=== PATIENT | male | born 2005 | race Two or more races ===

== ENCOUNTER 2025-01-14 12:07 | Emergency (ER) | payer OTHER, SELFPAY ==
[2025-01-14 12:09] VITALS: BP 121/79
[2025-01-14 12:46] LABS: COVID-19 Antigen Negative (Negative)
--- NOTE | 2025-01-14 13:03 | ED.GENMED ---
History of Present Illness
General
Chief Complaint: Cold/Flu/URI Symptoms
Source: patient
Exam Limitations: none
Time Seen by Provider: 01/14/25 12:56
Nursing documentation reviewed up to this point in time: agreed with
History of Present Illness
History of Present Illness:
The patient is a generally well and healthy 19-year-old man reporting 4 days of fever as high as 101. Patient reports mild headache, sore throat, fatigue, and multiple episodes of vomiting yesterday. Patient denies diarrhea. He denies any
vomiting today. He denies abdominal pain. Patient report he has had no medication for fever today. He denies sick contacts. He reports recent international travel. He denies rash. Patient reports sinus pressure and mucus congestion.
Past History
Past History
ED Past Medical History: None
ED Past Surgical History: None
Social History
Tobacco: Non-smoker
Alcohol: None
Drug: None
Personal: Single
Living: with family
Employment: Other
Family History
Family History: Other
Review of Systems
Review of Systems
Allergies reviewed?: Yes
All Other Systems: ROS reviewed and negative except as documented in HPI and ROS
Constitutional: Reports fever and fatigue
EENT: Reports sore throat and other (Mucus production)
Respiratory: Reports cough
Cardiac: Reports no symptoms
ABD/GI: Reports nausea and vomiting
: Reports no symptoms
Musculoskeletal: Reports no symptoms
Skin: Reports no symptoms
Neurological: Reports headache (Mild headache)
Endocrine: Reports no symptoms
Hematologic/Lymphatic: Reports no symptoms
Psychiatric: Reports no symptoms
Phy Exam
Physical Exam
Physical Exam:
Physical Exam
General: no apparent distress, not acutely ill. Nontoxic
Neck: supple. no meningeal signs. normal psoterior pharynx. No pharyngeal erythema or exudate. No cervical lymphadenopathy
Heart: s1/s2 regular rate and rhythm, no murmur. equal radial pulses.
Lungs: no acute respiratory distress. clear bilaterally
Abdomen: normal bowel sounds. not tender. no CVAT
Neuro: alert and oriented. no focal neurological deficits
Skin: no rash
Psychiatric: well kept. interactive and cooperative
Extremities: no edema. no calf tenderness. negative homans. good distal pulses
Course
Orders/Labs/Results
Orders:
Orders
01/14/25 12:14
COVID-19 Antigen Urgent
Source: Nasal Swab
Influenza A+B Rapid Molecular Urgent
PALMA Source: Nasal Swab
Specimen Description:
01/14/25 14:13
Complete Blood Count/With Diff Urgent
Comprehensive Metabolic Panel Urgent
Ehrlichia/Anaplasma by PCR [S] Urgent
Lyme Progressive Urgent
Monotest Urgent
Blood Parasites Urgent
PALMA Source: Blood/Venous
Specimen Description:
Rapid Strep Group A Urgent
PALMA Source: Throat/Pharynx
Specimen Description:
Date Specimen was Collected: 01/14/25
Time Specimen was Collected: 13:32
Abnormal Lab Results
01/14/25
14:13
MPV 10.7 H fL
(7.4-10.4)
Absolute Monos (auto) 1.3 H 10^3/uL
(0.1-0.6)
Monocytes % 15.1 H %
(1.7-9.3)
Monoscreen Positive A
(Negative)
01/14/25 14:13
01/14/25 14:13
Vital Signs
Initial and Last Documented VS:
Initial Vital Signs
Temp Pulse Resp BP Pulse Ox
98.4 F 84 18 121/79 99
01/14/25 12:09 01/14/25 12:09 01/14/25 12:09 01/14/25 12:09 01/14/25 12:09
Last Documented Vital Signs
Temp Pulse Resp BP Pulse Ox
98.7 F 73 18 116/77 100
01/14/25 14:15 01/14/25 14:15 01/14/25 12:09 01/14/25 14:12 01/14/25 14:17
MDM/Problems Addressed
Differential Diagnosis Includes:
Pneumonia, strep pharyngitis, viral illness
MDM/Problems Addressed:
Patient presents with acute fever, sore throat and bodyaches
*Pulse Oximetry
SaO2: 99
Oxygen Mode of Delivery: Room air
Patient hypoxic: no
Comment: 99% on room air
*Critical Care Note
Total Time (30-74mins, 75-104mins- exclusive of procedures): Not Applicable
ED Attending Note
-
Portions of this chart may have been created with voice recognition software.� Occasional wrong word or��sound alike� substitutions may have occurred due to the inherent limitations of voice recognition software.
Discharge Plan
Departure
Patient Disposition: Home (Routine Discharge)
Date of Disposition: 01/14/25
Time of Disposition: 15:08
Patient with high blood pressure during this ER visit?: No
Condition: Good
Covid-19: Negative COVID-19
Discharge Problem:
Mononucleosis
Instructions: Fever, Adult (DC), Mononucleosis
Prescriptions:
No Action
prednisone
prednisone 10 mg Tablet
See Rx Instructions .ROUTE .COMPLEX Qty: 45 0RF
Rx Instructions:
Take By Mouth:
50 mg daily x3 days, 40 mg daily x3 days,
30 mg daily x3 days, 20 mg daily x3 days,
10 mg daily x3 days
betamethasone, augmented [Diprolene (augmented)] 0.05 % ointment
1 applic topical BID PRN (Reason: rash) Qty: 50 0RF
Referrals:
Sadia Stuart MD [Family Provider, Internal Medicine]
Activity Restrictions/Additional Instructions:
You have a virus called mononucleosis. It is normal to have fever for 1 to 2 weeks, sore throat and fatigue.
Please take 1000 mg of Tylenol every 4-6 hours for pain. Try to drink lots of fluids and rest. There is no other specific treatment for this
Interventions
Interventions:
*Risk Screen - Suicide Last Done: 01/14/25 12:09
*General Assessment Last Done: 01/14/25 12:09
ED- Pulmonary Assessment Last Done: 01/14/25 14:17
Discharge Date and Time
Print Language: SUDANESE
[2025-01-14 14:12] VITALS: BP 116/77
[2025-01-14 14:15] VITALS: BMI 25.7
[2025-01-14 14:35] LABS: Hematocrit 42.6 % (39.0-52.0); Hemoglobin 14.3 g/dL (13.0-18.0); Mean Corp Hgb Conc. 33.6 g/dL (33.0-37.0); Mean Corpuscular Volume 83.2 fL (80.0-94.0); Nucleated Red Blood Cells % 0 % (-); Platelet Count 203 10^3/uL (130-400); Red Cell Dist. Width 12.5 % (11.5-14.5)
[2025-01-14 14:51] LABS: ALT (SGPT) 14 U/L (0-50); AST (SGOT) 25 U/L (17-59); Albumin 4.9 g/dl (3.5-5.0); Alkaline Phosphatase 80 U/L (38-126); Blood Urea Nitrogen 15 mg/dl (9-20); Calcium 9.5 mg/dl (8.4-10.2); Carbon Dioxide 29 mmol/L (22-30); Chloride 102 mmol/L (98-107); Estimated Creatinine Clearance > 125 ml/min; Glucose 86 mg/dl (70-99); Potassium 4.2 mmol/L (3.5-5.1); Sodium 140 mmol/L (135-145); Total Protein 8.1 g/dl (6.3-8.2); eGFR > 60.00
[2025-01-14 15:01] VITALS: BP 138/75
== END 2025-01-14 15:30 | disposition home or self-care (01) ==
LOC: EMR 12:07
PROVIDERS: Emergency Medicine; EMERGENCY PHYSICIAN Emergency Medicine; FAMILY PHYSICIAN Emergency Medicine
DX: B27.90 Infectious mononucleosis, unspecified without complication (principal)
CPT/HCPCS: 99283; 80053; 85025; 86308; 86618; 87015; 87070; 87207; 87468; 87484; 87502; 87798; 87811; 87880